=== PATIENT | male | born 1990 | race Two or more races ===

== ENCOUNTER 2018-02-27 08:23 | Emergency (ER) | payer MEDICAID ==
[2018-02-27] MEDS ORDERED: Albuterol/Ipratropium 3.0-0.5 MG/3 ML Neb Soln NEB ONE (08:58)
[2018-02-27] MEDS ORDERED: Sodium Chloride 0.9% 10 ML Syringe FLUSH PRN (08:58)
[2018-02-27] MEDS ORDERED: Ketorolac 30 MG/ML SDV IVPUSH ONE (08:59)
--- NOTE | 2018-02-27 09:06 | EDM.PDOC ---
ED HPI GENERAL MEDICAL PROBLEM - General Chief Complaint: Respiratory Problem Stated Complaint: CHEST PAIN / SOB Time Seen by Provider: 02/27/18 08:50 Source of Information: Reports: Patient History Limitations: Reports: No Limitations - History of Present Illness INITIAL COMMENTS - FREE TEXT/NARRATIVE: 27-year-old male here with left-sided chest pain, cough, asthma exacerbation. Apparently he was recently diagnosed with a fairly large "pneumonia" on the left side, has been treated with antibiotics but is not getting better. He is up here on vacation and is struggling with breathing and persistent left-sided chest pain. His oxygen level is normal, pulses normal, is complaining of lateral pleuritic-like pain on the left side. No nausea or vomiting. Onset: Gradual Location: Reports: Chest Quality: Reports: Sharp, Stabbing Severity: Moderate Worsens with: Reports: Breathing (Or coughing), Other Associated Symptoms: Denies: Fever/Chills Anterior Chest Pain Score (Numeric/FACES): 10 - Related Data Allergies Allergy/AdvReac Type Severity Reaction Status Date / Time No Known Allergies Allergy Verified 02/27/18 08:38 Home Meds: Home Meds Albuterol Sulfate [Proventil Hfa] 2 puff IH Q4H 02/27/18 [History] Formoterol/Mometasone [Dulera 100-50 MCG] 2 puff IH BID 02/27/18 [History] Past Medical History Respiratory History: Reports: Asthma, Other (See Below) Other Respiratory History: pneumonia - Infectious Disease History Infectious Disease History: Reports: Chicken Pox Social & Family History - Tobacco Use Smoking Status *Q: Current Every Day Smoker Years of Tobacco use: 10 Packs/Tins Daily: 0.2 Used Tobacco, but Quit: No Second Hand Smoke Exposure: Yes - Caffeine Use Caffeine Use: Reports: Coffee, Energy Drinks, Soda, Tea - Alcohol Use Days Per Week of Alcohol Use: 0 - Recreational Drug Use Recreational Drug Use: No ED ROS GENERAL - Review of Systems Review Of Systems: See Below Constitutional: Reports: Malaise. Denies: Fever, Chills HEENT: Denies: Throat Pain Respiratory: Reports: Shortness of Breath, Pleuritic Chest Pain, Cough Cardiovascular: Reports: Chest Pain GI/Abdominal: Denies: Nausea, Vomiting Skin: Reports: No Symptoms Neurological: Denies: Headache ED EXAM, GENERAL - Physical Exam Exam: See Below Exam Limited By: No Limitations General Appearance: Alert, No Apparent Distress (No distress, does look uncomfortable) Head: Atraumatic Respiratory/Chest: No Respiratory Distress, Wheezing (Patient has diffuse inspiratory and expiratory wheezes, breath sounds are symmetric) Cardiovascular: Regular Rate, Rhythm. No: Tachycardia Neurological: Alert, Oriented Psychiatric: Normal Affect, Normal Mood Course - Vital Signs Last Recorded V/S: Last Vital Signs Temp 96.8 F 02/27/18 08:45 Pulse 68 02/27/18 08:45 Resp 12 02/27/18 08:45 BP 104/76 02/27/18 08:45 Pulse Ox 92 L 02/27/18 08:45 - Orders/Labs/Meds Orders: Active Orders 24 hr Category Date Time Status RT Aerosol Therapy [RC] ASDIRECTED Care 02/27/18 08:58 Active Chest 2V [CR] Stat Exams 02/27/18 09:17 Taken Saline Lock Insert [OM.PC] Routine Oth 02/27/18 08:58 Ordered Meds: Medications Discontinued Medications Generic Name Dose Route Start Last Admin Trade Name Freq PRN Reason Stop Dose Admin Albuterol/Ipratropium 3 ml 02/27/18 08:58 02/27/18 09:07 Duoneb 3.0-0.5 Mg/3 Ml NEB 02/27/18 08:59 3 ml ONETIME ONE Administration Ketorolac Tromethamine 30 mg 02/27/18 08:59 02/27/18 09:13 Toradol IVPUSH 02/27/18 09:00 30 mg ONETIME ONE Administration Sodium Chloride 10 ml 02/27/18 08:58 02/27/18 09:14 Saline Flush FLUSH 10 ml ASDIRECTED PRN Administration Keep Vein Open - Re-Assessments/Exams Free Text/Narrative Re-Assessment/Exam: 02/27/18 09:06 Patient was given a DuoNeb, a saline lock was initiated and he'll be given 30 mg of IV Toradol. A two-view chest x-ray will be obtained. 02/27/18 09:38 Two-view chest x-ray was normal. We were preparing to give the patient 125 mg Solu-Medrol IV but he insisted on leaving because we wouldn't give him anything stronger for pain. Departure - Departure Time of Disposition: 09:45 Disposition: Against Medical Advice 07 Condition: Fair Clinical Impression: Pleurisy Asthma Qualifiers: Asthma severity: moderate Asthma persistence: unspecified Asthma complication type: with acute exacerbation Qualified Code(s): J45.901 - Unspecified asthma with (acute) exacerbation - Discharge Information Instructions: Pleurisy, [id number] Referrals: PCP,None [Primary Care Provider] - Forms: ED Department Discharge Care Plan Goals: Patient left AMA without steroid treatment. He was encouraged to continue his current medications and recheck when he gets home. - My Orders Last 24 Hours: My Active Orders 02/27/18 08:58 RT Aerosol Therapy [RC] ASDIRECTED Saline Lock Insert [OM.PC] Routine 02/27/18 09:17 Chest 2V [CR] Stat - Assessment/Plan Last 24 Hours: My Active Orders 02/27/18 08:58 RT Aerosol Therapy [RC] ASDIRECTED Saline Lock Insert [OM.PC] Routine 02/27/18 09:17 Chest 2V [CR] Stat
--- NOTE | 2018-03-01 09:20 | CR ---
Heart size within normal limits. Right lung is clear. There is a linear density within the lingula wh ich may indicate atelectatic change. Difficult to exclude developing infiltrate if symptoms persist r ecommend radiographic follow-up. Emphysematous change.
== END 2018-02-27 09:48 | disposition left against medical advice (07) ==
LOC: EDBD 08:23 → JP.ED 08:23
DX: J45.901 Unspecified asthma with (acute) exacerbation (principal); R09.1 Pleurisy; F17.210 Nicotine dependence, cigarettes, uncomplicated
CPT/HCPCS: 71046; 94640; 96374; 99285; J1885; J7050; J7620